=== PATIENT | male | born 1995 | race Native Hawaiian/Other Pacific Islander ===

== ENCOUNTER → 2020-01-25 | Outpatient (CLI) | payer OTHER ==
[~2020-01-25] MED LIST: BREAMIS6 XX; PROAAER10 INH
--- NOTE | 2020-01-27 05:16 | REP ---
INDICATION: DYSPNEA COMPARISON: 02/03/2018 TECHNIQUE: PA and lateral. FINDINGS: The mediastinum and cardiac silhouette are normal. The lung trevino are clear and without acute consolidation, effusion, or pneumothorax. The skeletal structures are intact and normal. IMPRESSION: No acute cardiopulmonary process. <Electronically signed by Fidel uRtherford > 01/27/20 0512
== END ==
LOC: M RAD 10:38
PROVIDERS: ATTEND Physician Assistant
DX: R06.00 Dyspnea, unspecified (principal)

== ENCOUNTER → 2020-02-02 | Outpatient (CLI) | payer OTHER ==
[~2020-02-02] MED LIST changes: +METHACHOLINE KIT (J7674) INH ONE
--- NOTE | 2020-02-02 12:03 | PFTRPT ---
Site: [facility], [address] [place], [address] ID: [id number] Name: URSULA PETERS Visit Date: 02/02/2020 Second ID: [id number] Referring Doctor: ANAI Ramsey, Hamida Feliciano Reviewing Doctor: Adi Galvan MD Customer Support Associate: Derrick BOO RRT Age: 24 : 1995 Sex: Male Race: <Unspecified> Height: 69.00 Inches Weight: 225.00 Lbs BSA: 2.17 Order IDs: [id number] Requested Test(s): <RESP-PFT.METH CHAL> Diagnosis: R06.00 of albuterol for post bronchodilator. Review Status: Not Reviewed Pre-Bronch Post-Bronch Pred Actual %Pred Actual %Chng SPIROMETRY FVC (L) 5.40 4.16 76 4.14 FEV1 (L) 4.49 3.57 79 3.47 -2 FEV1/FVC (%) 83 86 103 84 -2 FEF 25% (L/sec) 8.91 7.42 83 7.68 3 FEF 50% (L/sec) 6.28 5.64 89 4.34 -23 FEF 75% (L/sec) 2.38 1.91 80 1.57 -17 FEF 25-75% (L/sec) 4.72 4.30 91 3.67 -14 FEF Max (L/sec) 9.94 7.42 74 7.75 4 FIVC (L) 4.09 3.77 -7 FIF 50% (L/sec) 5.68 5.84 102 4.33 -25 FIF Max (L/sec) 6.01 4.56 -24 Expiratory Time (sec) 6.30 6.91 9 Back Extrap Vol (L) 0.15 0.15 1 Time To FEFmax (sec) 0.138 0.112 -19
== END ==
LOC: M CARPUL 11:10
PROVIDERS: ATTEND Physician Assistant
DX: R06.00 Dyspnea, unspecified (principal)
CPT/HCPCS: 94070; J7674

== ENCOUNTER → 2020-03-16 | Outpatient (CLI) | payer SELFPAY ==
[~2020-03-16] MED LIST changes: -METHACHOLINE KIT (J7674) INH ONE
== END ==
LOC: M LABSMTC 11:51
PROVIDERS: ATTEND Pediatrics
DX: Z20.828 Contact with and (suspected) exposure to other viral communicable diseases (principal)